=== PATIENT | male | born 1940 | race Hispanic/Latino ===

== ENCOUNTER → 2020-03-19 | Outpatient (CLI) | payer OTHER, MEDICARE ==
[~2020-03-19] MED LIST: AMLO-258 PO; BIMA2.5D4 OP; DABI150C PO; EMPA10TA PO; ENAL20TA18 PO; EZET10TA48 PO; HYDR25TA PO; LEVO75TA10 PO; PRAV40TA3 PO; SITA1TAB6 PO; TIMO.5OS OU
== END | disposition home or self-care (01) ==
LOC: SHCH 09:18
PROVIDERS: ATTEND Internal Medicine Cardiovascular Disease
DX: I35.8 Other nonrheumatic aortic valve disorders (principal); I51.7 Cardiomegaly; I34.0 Nonrheumatic mitral (valve) insufficiency
CPT/HCPCS: 93306; 93356

== ENCOUNTER → 2021-02-04 | Outpatient (CLI) | payer OTHER, MEDICARE | END | disposition home or self-care (01) | LOC: SHCH 12:11 | PROVIDERS: ATTEND Internal Medicine Cardiovascular Disease | DX: I70.203 Unspecified atherosclerosis of native arteries of extremities, bilateral legs (principal); I87.2 Venous insufficiency (chronic) (peripheral) | CPT/HCPCS: 93925; 93970 ==

== ENCOUNTER → 2023-04-29 | Outpatient (CLI) | payer MEDICARE ==
[~2023-04-29] MED LIST changes: +APIX5TAB PO; -BIMA2.5D4 OP; -DABI150C PO; -ENAL20TA18 PO; -LEVO75TA10 PO; +LEVO88CA4 PO; +LISI20TA24 PO; +TAMS-1 PO; -TIMO.5OS OU
[2023-04-29] MEDS: REGADENOSON 0.4 MG/5 ML PF SYG IVP ONE (15:49)
== END | disposition home or self-care (01) ==
LOC: SHCH 07:51
PROVIDERS: ATTEND Internal Medicine Cardiovascular Disease
DX: I48.91 Unspecified atrial fibrillation (principal); I20.9 Angina pectoris, unspecified; I47.20 Ventricular tachycardia, unspecified; I25.42 Coronary artery dissection; Z95.0 Presence of cardiac pacemaker
CPT/HCPCS: 78452; 93017; J2785; A9500 ×2; 96374